=== PATIENT | female | born 1985 ===

== ENCOUNTER 2023-09-27 18:11 | Outpatient (REF) | payer BC, SELFPAY ==
[2023-09-27 21:21] LABS: ALT 33 U/L (14-59); AST 20 U/L (15-37); Albumin 3.7 g/dL (3.4-5.0); Alkaline Phosphatase 69 U/L (46-116); Anion Gap 11.5 mmol/L (3-11); BUN 13 mg/dL (7-18); Bilirubin, Total 0.3 mg/dL (0.2-1.0); CO2 25.5 mmol/L (21.0-32.0); CREATININE 0.8 mg/dL (0.55-1.02); Calcium 9.3 mg/dL (8.5-10.1); Calculated LDL 46 mg/dL (<100); Chloride 101 mmol/L (98-107); Cholesterol 157 mg/dL (<200); Estimated GFR 97.26 (mL/min/1.73m2); Glucose 95 mg/dL (74-106); HDL Cholesterol 84 mg/dL (40-60); Potassium 3.6 mmol/L (3.5-5.1); Sodium 138 mmol/L (136-145); Total Protein 7.7 g/dL (6.4-8.2); Triglyceride 135 mg/dL (<150)
[2023-09-27 21:57] LABS: Hemoglobin A1C 5.3 % (<5.7)
[2023-09-28 18:55] LABS: Hepatitis C Ab w Rflx HCV PCR Negative (Negative)
[2023-09-28 18:58] LABS: HIV-1/2 Ag & Ab Screen Negative (Negative)
== END 2023-09-27 18:12 | disposition home or self-care (01) ==
LOC: NCHCN 18:11
PROVIDERS: Visit Provider Nurse Practitioner Family
DX: Z00.00 Encounter for general adult medical examination without abnormal findings (principal); Z13.220 Encounter for screening for lipoid disorders; Z13.228 Encounter for screening for other metabolic disorders; Z13.1 Encounter for screening for diabetes mellitus; Z11.4 Encounter for screening for human immunodeficiency virus [HIV]; Z11.59 Encounter for screening for other viral diseases
CPT/HCPCS: 80053; 80061; 86803; 87389; 83036

== ENCOUNTER 2024-07-17 15:48 | Outpatient (REF) | payer BC, SELFPAY ==
--- NOTE | 2024-07-17 14:45 | PAPFT_PTH ---
PATIENT: KATIE CLARK LOC: [facility] U#:[id number] AGE/SX: 39/F ROOM: RE07/17/[address]: Ada Graham : 1985 BED: DIS: 07/17/2024 SPEC #: [id number] RECD: 07/17/24 17:47 STATUS: ERASMO REQ #: [id number] NAVNEET: 07/17/24 14:[address]: Ada Graham DEPT: [facility] Cytology RECD BY: Yissel Andujar ENTERED: 07/17/24 17:47 SP TYPE: PAPFT OT DR: Unknown,Unknown Tissues: 1 - CX/ENDOCX FOR PAP SMEARS Procedures: PAP THIN PREP/[facility] Screening HPV DNA PROBE Comments: (HPV 16 & 18/45) (CHLAMYDIA/GC)
[2024-07-22 12:36] LABS: Chlamydia Result Negative (Negative); GC Result Negative (Negative)
== END 2024-07-17 15:49 | disposition home or self-care (01) ==
LOC: NCHCN 15:48
PROVIDERS: Visit Provider Nurse Practitioner Family
DX: Z11.51 Encounter for screening for human papillomavirus (HPV) (principal); Z01.419 Encounter for gynecological examination (general) (routine) without abnormal findings; Z11.3 Encounter for screening for infections with a predominantly sexual mode of transmission
CPT/HCPCS: 87491; 87591; 88142; 87624